=== PATIENT | female | born 1985 | race Two or more races ===

== ENCOUNTER 2018-12-06 13:25 | Emergency (ER) | payer OTHER ==
[~2018-12-06] VITALS: Ht 179.1 cm; Wt 68.9 kg
[2018-12-06] MEDS: IV DEXTROSE 5% - 0.9 % NACL 1,000 ML IV ONE (14:15)
--- NOTE | 2018-12-06 14:18 | PHYS DOC ---
Past History Past Medical History: Asthma Past Surgical History: No Surgical History Smoking: Non-smoker Alcohol Use: None Drug Use: None Adult General Chief Complaint Chief Complaint: VOMITING IN HPI HPI Patient is a 33-year-old female presents with nausea and vomiting approximately 10 times today. Patient is 6-7 weeks . No blood in the emesis. No significant abdominal pain. Patient has no antiemetics available at home. She is 2 para 1. Any oral intake triggers the vomiting. No recent travel. No fever. No vaginal bleeding or discharge. No dysuria.[] Review of Systems Review of Systems Constitutional: Denies fever or chills [] Eyes: Denies change in visual acuity, redness, or eye pain [] HENT: Denies nasal congestion or sore throat [] Respiratory: Denies cough or shortness of breath [] Cardiovascular: No chest pain or palpitations[] GI: See history of present illness[] : Denies dysuria or hematuria [] Musculoskeletal: Denies back pain or joint pain [] Integument: Denies rash or skin lesions [] Neurologic: Denies headache, focal weakness or sensory changes [] Endocrine: Denies polyuria or polydipsia [] All other systems were reviewed and found to be within normal limits, except as documented in this note. Allergies Allergies Allergies Coded Allergies Type Severity Reaction Last Updated Verified No Known Drug Allergies 12/06/18 No Physical Exam Physical Exam Constitutional: Well developed, well nourished, no acute distress, non-toxic appearance. [] HENT: Normocephalic, atraumatic, bilateral external ears normal, oropharynx moist, no oral exudates, nose normal. [] Eyes: PERRLA, EOMI, conjunctiva normal, no discharge. [] Neck: Normal range of motion, no tenderness, supple, no stridor. [] Cardiovascular:Heart rate regular rhythm, no murmur [] Lungs & Thorax: Bilateral breath sounds clear to auscultation [] Abdomen: Bowel sounds normal, soft, no tenderness, no masses, no pulsatile masses. [] Skin: Warm, dry, no erythema, no rash. [] Back: No tenderness, no CVA tenderness. [] Extremities: No tenderness, no cyanosis, no clubbing, ROM intact, no edema. [] Neurologic: Alert and oriented X 3, normal motor function, normal sensory function, no focal deficits noted. [] Psychologic: Affect normal, judgement normal, mood normal. [] Current Patient Data Vital Signs Vital Signs Date Time Temp Pulse Resp B/P (MAP) Pulse Ox O2 Delivery O2 Flow Rate FiO2 12/06/18 13:37 97.9 92 16 98 Room Air EKG EKG [] Radiology/Procedures Radiology/Procedures [] Course & Med Decision Making Course & Med Decision Making Pertinent Labs and Imaging studies reviewed. (See chart for details) Medical decision making: Patient with nausea and vomiting in . Ketones are noted in the urine. No evidence of urinary tract infection. No evidence of oral intake intolerance. She is drinking without any difficulty in the emergency department after treatment. Will discharge with outpatient antiemetics. Discussed plan with patient who voiced understanding. All questions were answered. She was discharged in improved condition.[] Dragon Disclaimer Dragon Disclaimer This electronic medical record was generated, in whole or in part, using a voice recognition dictation system. Departure Departure: Impression: Primary Impression: Nausea and vomiting during Disposition: 01 HOME, SELF-CARE Condition: IMPROVED Referrals: [facility] (PCP) Patient Instructions: Nausea and Vomiting Additional Instructions: Drink plenty of fluids, frequent small sips. No fatty foods, no milk, and no pepper for the next 48 hours. For the next 48 hours eat a diet rich in carbohydrates with foods such as bananas, rice, applesauce, and toast. Follow-up with your regular doctor in 2 days. Return to the ER if unable to tolerate liquids, blood in the emesis, or any other concerns. Scripts Ondansetron Hcl (ZOFRAN) 4 Mg Tablet 1 TAB PO Q6HRS for nausea or vomiting, #20 TAB Prov: RASHEL TABOR DO 12/06/18 RASHEL TABOR DO Dec 06, 2018 14:18
[2018-12-06] MEDS: METOCLOPRAMIDE HCL 10 MG/2 ML VIAL. IM ONE (14:26)
[2018-12-06 14:33] LABS: BASO % 0 % (0-3); EOS % 0 % (0-3); HEMATOCRIT 39.1 % (36.0-47.0); HEMOGLOBIN 13.5 g/dL (12.0-15.5); LYMPH # 0.7 x10^3/uL (1.0-4.8); LYMPH % 5 % (24-48); MEAN CORPUSCULAR HEMOGLOBIN 29 pg (25-35); MEAN CORPUSCULAR HGB CONC 35 g/dL (31-37); MEAN CORPUSCULAR VOLUME 84 fL (79-100); MONO # 0.3 x10^3/uL (0.0-1.1); MONO % 3 % (0-9); NEUT # 11.8 x10^3uL (1.8-7.7); NEUT % 92 % (31-73); PLATELET COUNT 327 x10^3/uL (140-400); RED BLOOD COUNT 4.67 x10^6/uL (3.50-5.40); RED CELL DISTRIBUTION WIDTH 13.4 % (11.5-14.5); WHITE BLOOD COUNT 12.9 x10^3/uL (4.0-11.0)
[2018-12-06 14:47] LABS: ALBUMIN/GLOBULIN RATIO 1.2 (1.0-1.7); CALCIUM 8.9 mg/dL (8.5-10.1); CREATININE 0.8 mg/dL (0.6-1.0); GFR 82.6; POTASSIUM 3.7 mmol/L (3.5-5.1); TOTAL BILIRUBIN 0.7 mg/dL (0.2-1.0); TOTAL PROTEIN 7.3 g/dL (6.4-8.2)
[2018-12-06 15:54] LABS: BACTERIA,URINE 0 /HPF (0-FEW); BILIRUBIN,URINE NEG (NEG); CLARITY,URINE HAZY; COLOR,URINE YELLOW; GLUCOSE,URINE 500 mg/dL (NEG); NITRITE,URINE NEG (NEG); RBC,URINE 0 /HPF (0-2); SQUAMOUS EPITHELIAL CELL,UR FEW /LPF; UROBILINOGEN,URINE 0.2 mg/dL (0.2 mg/dL); WBC,URINE 0 /HPF (0-4)
[2018-12-06] MEDS ORDERED: ONDA4TAB7 PO (16:02)
[2018-12-06 16:17] VITALS: BP 104/62
== END 2018-12-06 16:17 | disposition home or self-care (01) ==
LOC: ER 13:25
DX: O21.9 Vomiting of pregnancy, unspecified (principal); O99.511 Diseases of the respiratory system complicating pregnancy, first trimester; J45.909 Unspecified asthma, uncomplicated; Z3A.01 Less than 8 weeks gestation of pregnancy
CPT/HCPCS: 36415; 80053; 81001; 84702; 85025; 96360; 96372; 99284; J2765; J7042